=== PATIENT | male | born 1975 | race Hispanic/Latino ===

== ENCOUNTER 2021-07-13 09:47 | Outpatient (CLI) | payer OTHER ==
--- NOTE | 2021-07-13 12:18 | XRay Report ---
LUMBAR SPINE 3 VIEWS INDICATION: BACK PAIN COMPARISON: None. FINDINGS: No acute, displaced fracture is seen. There is no listhesis. Lower thoracic and upper lumbar discogenic degenerative change is noted. SI joints are within normal limits. CONCLUSION: 1. No acute findings. 2. Degenerative changes, as above. Signer Name: Gavin Vicente MD Signed: 07/13/2021 12:14 PM Workstation Name: [employer] [id number]
== END 2021-07-13 09:48 | disposition home or self-care (01) ==
LOC: XRAY 09:47
PROVIDERS: ATTEND Internal Medicine
DX: M47.816 Spondylosis without myelopathy or radiculopathy, lumbar region (principal)
CPT/HCPCS: 72100